=== PATIENT | male | born 2000 | race Caucasian/White ===

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

== ENCOUNTER 2021-07-04 16:39 | Emergency (ER) | payer BC, SELFPAY ==
--- NOTE | ~2021-07-04 | CT_ITS ---
EXAMINATION: CT abdomen pelvis w con DATE: 07/04/2021 18:29 INDICATION: Lower abdominal pain, testicular pain and swelling TECHNIQUE: Computed tomography (CT) of the abdomen and pelvis was performed with 100 cc Omnipaque 350 intravenous contrast. Automated exposure control and iterative reconstruction technique were employe d. Exam dose: 983.20 mGy-cm total exam DLP. COMPARISON: 07/17/2020 CT abdomen pelvis FINDINGS: There are no pericardial or pleural effusion. No infiltrate or consolidation at the lung ba ses. Limited, gallbladder, bile ducts, spleen, pancreas, pancreatic duct, and adrenal glands and kidneys a re unremarkable. Normal caliber of the abdominal aorta. No intraperitoneal or retroperitoneal or pelvic mass lesion or adenopathy or ascites. Normal appendix. There is no evidence of appendicitis. Fluid levels are noted in the small bowel and ascending and transverse colon, without abnormal dilata tion. Consider enterocolitis. No apparent bowel obstruction. There are numerous nonenlarged mesenteri c lymph nodes, likely reactive The urinary bladder, prostate gland and seminal vesicles are unremarkable. Small fat-containing umbilical hernia. Included skeletal structures are unremarkable. IMPRESSION: Nondilated fluid containing small bowel with air-fluid levels and air-fluid levels of th e ascending and transverse colon, suggesting enterocolitis Reviewed, dictated and finalized at [facility]. Reviewed, dictated and finalized at location [facility]. IMPRESSION: Nondilated fluid containing small bowel with air-fluid levels and air-fluid levels of the ascending and transverse colon, suggesting enterocoliti s
[2021-07-04 16:47] VITALS: BP 152/98; PULSE 129; RESP 20; TEMP 36.9; O2SAT 95
--- NOTE | 2021-07-04 17:35 | ED.ABDPAIN ---
HPI - Abdominal Pain General Chief Complaint: Abdominal Pain Stated Complaint: ABD pain Time Seen by Provider: 07/04/21 17:12 Source: patient Mode of arrival: ambulatory Limitations: no limitations History of Present Illness HPI narrative: Patient is a 21-year-old male complaining of lower abdominal pain, 7 out of 10, dull, nonradiating started yesterday. Patient also states that he has noticed some bilateral testicular swelling that also started yesterday. Patient denies any chest pain, shortness of breath, nausea, vomiting, diarrhea, fever, chills or urinary symptoms. Patient denies any GI bleed Related Data Allergies Allergy/AdvReac Type Severity Reaction Status Date / Time No Known Allergies Allergy Verified 07/04/21 17:01 Review of Systems Review of Systems: All systems reviewed & are unremarkable except as noted in HPI and below Constitutional: Constitutional: Denies body ache(s), Denies chills, Denies excessive sweating, Denies fatigue, Denies fever(s), Denies headache(s), Denies lethargy, Denies malaise, Denies weakness and Denies weight loss Eyes: Eyes: Denies blurry vision, Denies change in vision and Denies loss of vision ENT: Denies dizziness, Denies ear discharge, Denies headache(s), Denies lip swelling, Denies epistaxis, Denies nasal congestion, Denies neck pain, Denies throat swelling and Denies tongue swelling Cardiovascular: Cardiovascular: Denies chest pain, Denies chest pain at rest, Denies chest pain with activity, Denies diaphoresis, Denies rapid heart rate, Denies edema, Denies irregular heart rhythm, Denies lightheadedness, Denies palpitations, Denies dyspnea and Denies dyspnea on exertion Respiratory: Respiratory: Denies chest congestion, Denies cough, Denies hemoptysis, Denies dyspnea and Denies dyspnea on exertion Gastrointestinal: Gastrointestinal: Denies abdominal pain, Denies melena, Denies hematochezia, Denies diarrhea, Denies nausea, Denies vomiting and Denies hematemesis Musculoskeletal: Musculoskeletal: Denies abnormal gait, Denies deformity, Denies joint swelling, Denies limited range of motion, Denies neck pain and Denies numbness Neurologic: Denies Abnormal speech present, Denies abnormal gait, Denies confusion, Denies dizziness, Denies headache(s), Denies focal weakness, Denies loss of vision, Denies numbness, Denies Other visual disturbances, Denies Sensory deficit (Neuro) and Denies weakness Psychiatric: Psychiatric: Denies confusion, Denies depression, Denies auditory hallucinations, Denies homicidal ideation and Denies suicidal ideation Endocrine: Endocrine: Denies cold intolerance, Denies excessive sweating, Denies fatigue, Denies heat intolerance and Denies palpitations Hematologic/Lymphatic: Hematologic/Lymphatic: Denies easy bleeding and Denies easy bruising Allergic/Immunologic: Allergic/Immunologic: Denies lip swelling, Denies throat swelling and Denies tongue swelling PMFSH Past Medical History Medical History Cerebral palsy Graves' disease Social History Social History Social History: Patient does not smoke or drink or uses drugs. Second hand tobacco smoke exposure: No Exam Const: General: cooperative, healthy appearing, comfortable, no acute distress, well developed, alert and awake; No confusion Orientation/consciousness: oriented to person, oriented to place, oriented to time, patient oriented x3 and No confusion Limitations: no limitations HENMT: Head: normal to inspection, normocephalic and atraumatic Ears: hearing grossly normal bilaterally, TM normal on the right and TM normal on the left General nose exam: Normal external nose present, Normal nares present and No nasal discharge present Face and sinus: normal facial exam Mouth: Yes Normal oral and palatal mucosa present, Yes lip normal, Yes tongue normal and Yes oropharynx normal Throat: posterior
[2021-07-04] MEDS: SODIUM CHLORIDE 0.9% IV 1,000 ML 999 ML IV CONT (17:40)
[2021-07-04 17:48] LABS: Basophils Absolute Auto 0.1 K/mm3 (0.0-0.1); Basophils Percent Auto 0.4 % (0.2-1.2); Eosinophils Percent Auto 0.1 % (0-4.4); Hematocrit 45.5 % (42.0-52.0); Hemoglobin 15.1 g/dL (14.0-18.0); Immature Granulocyte Absolute 0.04 K/mm3 (0.00-0.031); Immature Granulocyte Percent A 0.3 % (0-0.5); Lymphocytes Absolute Auto 1.82 K/mm3 (0.9-3.2); Lymphocytes Percent Auto 13.4 % (18.3-44.2); Mean Corpuscular HGB Conc 33.2 g/dl (32-36); Mean Corpuscular Hemoglobin 27.6 pg (26-34); Mean Corpuscular Volume 83.2 fl (80-100); Mean Platelet Volume 9.7 fl (7.4-10.4); Monocytes Absolute Auto 1.1 K/mm3 (0.1-0.6); Monocytes Percent Auto 8.2 % (2.6-8.5); Neutrophils Absolute Auto 10.6 K/mm3 (1.3-6.7); Neutrophils Percent Auto 77.6 % (45.5-73.1); Platelet Count Result 341 k/mm3 (150-375); Red Blood Count 5.47 M/mm3 (4.6-6.20); Red Cell Distribution Width 14.1 % (11.5-14.5); White Blood Count 13.6 K/mm3 (4.5-10.0)
[2021-07-04] MEDS: ONDANSETRON INJ 4 MG/2 ML VIAL IV PUSH (17:49)
[2021-07-04] MEDS: MORPHINE SULFATE (*CRX) 2 MG/ML INJ IV PUSH (17:49)
[2021-07-04 18:01] LABS: Alanine Aminotransferase 28 U/L (4-50); Albumin Level 5.1 g/dL (3.5-5.1); Alkaline Phosphatase 112 U/L (38-126); Anion Gap 10 mmol/L (8-16); Aspartate Amino Transferase 25 U/L (17-59); Bilirubin,Total 0.7 mg/dL (0.2-1.3); Blood Urea Nitrogen 10 mg/dL (9-20); Carbon Dioxide 28 mmol/L (22-30); Chloride 100 mmol/L (98-107); Estimated CRCL calculation 179 ml/min; Estimated Glomerular Filt Rate > 60; Glucose 121 mg/dL (65-110); Potassium 3.9 mmol/L (3.4-5.0); Sodium 138 mmol/L (137-145)
[2021-07-04 18:37] VITALS: BP 161/89; PULSE 118; RESP 114; O2SAT 100
[2021-07-04 19:25] VITALS: BP 139/83; PULSE 106; RESP 18; O2SAT 100
[2021-07-04 19:26] LABS: Add Urine Microscopic? YES; Amorphous Sediment Urine Few; Appearance Urine Cloudy (Clear); Bacteria Urine Trace /hpf; Bilirubin Urine Negative (Negative); Blood Urine Negative (Negative); Color Urine Yellow (Yellow); Glucose Urine UA Negative (Negative); Ketones Urine 1+ mg/dL (Negative); Leukocyte Esterase Ur Negative LEU/UL (Negative); Mucus Urine Few /lpf; Nitrate Urine Negative (Negative); Protein Urine Negative (Negative); Urobilinogen Urine Negative mg/dL (<2.0); WBC Urine 0-3 /hpf
[2021-07-04 20:27] VITALS: BP 149/93; PULSE 108; RESP 18; O2SAT 100
[2021-07-04] MEDS: KETOROLAC 30 MG/ML VIAL (*BKC) IV PUSH (20:34)
[2021-07-04 21:40] VITALS: BP 137/86; PULSE 106; RESP 18; O2SAT 100
== END 2021-07-04 22:50 | disposition home or self-care (01) ==
PROVIDERS: Emergency Provider Emergency Medicine; PCP Physician Assistant
DX: K52.9 Noninfective gastroenteritis and colitis, unspecified (principal); G80.9 Cerebral palsy, unspecified; E05.00 Thyrotoxicosis with diffuse goiter without thyrotoxic crisis or storm
CPT/HCPCS: 36415; 74177; 80053; 81001; 83605; 85025; 96361; 96374; 96375; 99284; J1885; J2270; J2405; J7030; Q9967

== ENCOUNTER → 2021-07-05 11:59 | Outpatient (CLI) | payer BC, SELFPAY ==
--- NOTE | ~2021-07-05 | US_ITS ---
EXAMINATION: US scrotum doppler DATE: 07/05/2021 12:23 INDICATION: Testicular pain, unspecified. TECHNIQUE: Grayscale and Doppler ultrasound images of the testes were obtained. COMPARISON: None. FINDINGS: The right testis measures 5.1 x 3.3 x 3.4 cm. The right testis demonstrates diffusely heter ogeneous echogenicity that is predominantly hypoechoic. There is no visible vascular flow in right te stis. The left testis measures 5.0 x 2.3 x 2.6 cm. There is normal vascular flow to the left testis. The right epididymis is enlarged with heterogeneous hypoechogenicity. There is no visible vascularity in the right epididymis. The left epididymis is normal with normal vascular flow. There is a moderat e-sized right hydrocele. IMPRESSION: 1. 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 Neoplasm cannot be excl uded. 2. Enlarged and heterogeneous right epididymis without visible vascular flow, which may be infarct or chronic epididymitis. 3. Moderate-sized right hydrocele. Reviewed, dictated and finalized at location [facility]. IMPRESSION: 1. 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 N eoplasm cannot be excluded. 2. Enlarged and heterogeneous right epididymis without visible vascular flow, w hich may be infarct or chronic epididymitis. 3. Moderate-sized right hydrocele.
== END ==
PROVIDERS: PCP Physician Assistant; Visit Provider Physician Assistant
DX: N50.819 Testicular pain, unspecified (principal); N43.3 Hydrocele, unspecified
CPT/HCPCS: 76870; 93976

== ENCOUNTER 2021-07-06 12:21 | Day surgery (SDC) | payer BC, SELFPAY ==
[2021-07-06] VITALS (7 sets, daily range): BP systolic 143–162; BP diastolic 67–93; PULSE 87–109; RESP 16–24; TEMP 36.8–37.7; O2SAT 96–99; BMI 31.0
--- NOTE | 2021-07-06 12:09 | P.PNAN_ITS ---
Anes - Initial Pre Proc Eval Procedure: Operation Date: 07/06/21 15:00 Proposed Procedures p Scrotal Exploration with Possible Right Orchiectomy, with Bilateral Scrotal Orchiopexy - Travis Wade MD Date/Time: 07/06/21 12:09 Surgeon: Travis Wade MD Pre Op Diagnosis: testicular torsion Patient Data Age: 21 Gender: M Height: Weight: Allergies Allergy/AdvReac Type Severity Reaction Status Date / Time No Known Allergies Allergy Verified 07/06/21 13:21 Home Medications Medication Instructions Recorded Confirmed Type metronidazole 500 mg PO Q8H #21 tablet 07/04/21 07/06/21 Rx sulfamethoxazole-trimethoprim 1 tablet PO Q12H #10 tablet 07/04/21 07/06/21 Rx [Bactrim DS] methimazole 5 mg PO HS 07/06/21 07/06/21 History Patient hx anesthesia problems: none Family hx anesthesia problems: none Results Review: All pre-operative results and documents have been reviewed as part of the pre-operative evaluation. [facility] Past Medical History Medical History Cerebral palsy Graves' disease Social History Social History Social History: Patient does not smoke or drink or uses drugs. Second hand tobacco smoke exposure: No Anes - Eval Final PreProcedure Day of Procedure 07/06/21 12:09 Patient weight: normal Heart: regular rate and rhythm Lungs: clear to auscultation and normal air movement Airway: Mallampati scale class IV Neurological: alert and oriented Last oral intake: >/= 8 hours ASA classification: III Emergent: no Anesthetic plan: proceed Anesthesia type and monitoring: general LMA and standard monitoring Results Review: All pre-operative results and documents have been reviewed as part of the pre-operative evaluation. Informed Consent: The patient's anesthetic plan and its attendant risks and benefits were discussed with the patient/family/POA. Questions were solicited and answers provided to the satisfaction of the patient/family/POA.
--- NOTE | 2021-07-06 13:14 | WPDHPUPDATE1 ---
History and Physical Update Update Date/Time: 07/06/21 13:14 History and Physical has been reviewed, including an updated exam of the patient. There are NO changes in the patient's condition. Risks, benefits, and alternatives have been discussed and questions answered. Patient agrees to proceed with procedure. Proceed with scrotal exploration, possible right orchiectomy with bilateral orchiopexy.
[2021-07-06] MEDS: LACTATED RINGERS 1,000 ML 30 ML IV CONT ×2 (14:00→16:05)
[2021-07-06] MEDS: fentaNYL CITRATE INJ (*CRX) 100 MCG/2 ML VIAL 50 MCG IV PUSH (14:00)
[2021-07-06] MEDS: ceFAZolin 2 GM/D5W 50 ML 2 GM/50 ML BAG IVPB (14:34)
[2021-07-06] MEDS: NEOMYCIN/POLYMYXIN/BACITRACIN OINTMENT 15 GM TUBE 1 APPLIC TOPICAL (15:48)
[2021-07-06] MEDS: BUPIVACAINE HCL 0.25% PF 30 ML VIAL INFILTRATE (15:56)
--- NOTE | 2021-07-06 16:03 | P.OP_ITS ---
Procedure Note - Detailed Date of Procedure 07/06/21 Pre-op Diagnosis testicular torsion Post-op Diagnosis same Procedure Performed Scrotal exploration with right orchiectomy and left orchiopexy Surgeon Travis Wade MD Anesthesia general Findings Necrotic appearing testicle with epididymis with large congested hematoma filling the hydrocele sac as well as in the cord and epididymis. 2. Somewhat malrotated left testicle with the epididymal head actually lying inferiorly Description of Procedure Patient is taken to the operative suite and correctly identified. Once anesthesia was obtained was placed in the supine position and prepped draped usual sterile fashion. A midline scrotal incision was made. It was difficult to get any distinct layers of the tunica due to the extreme amount of edema present. We were able to isolate the right hemiscrotum and bring the testicle and cord up to the operative field. Immediately the entire testicle and cord area was dark in nature. The cord was twisted at least 360?. There was hematoma all along the epididymis and cord. He had a small hydrocele which we opened. This also had hematoma within it. We incised the capsule of the testicle. The tubules appeared dark necrotic in nature. At this point we went ahead and proceeded did a right orchiectomy. The cord was in terms of the vessels and the vas. These were then suture ligated using 2-[address] did [address] a proximal to 0 Prolene on the vascular portion. Specimen was sent for evaluation. We then opened the left hemiscrotum. The testicle was noted to be in a somewhat abnormal position with the epididymal head being inferiorly. We placed it in the appropriate location. We then did an orchiopexy using 2 0 Ethibond by ligating and securing it in 3 points. I should state that he also had a small hydrocele on the left and we excised the excess tissue. Quarter- inch Kierra drains were placed through both hemiscrotum since secured using 3-0 chromic. Tunica of the left hemiscrotal was a closed using 3-0 chromic in a running fashion. Due to the severe edema and fibrous tissue in the right hemiscrotum was somewhat more difficult to close but we accomplished that using 3-0 chromic in a running fashion. Skin was closed using 3-0 chromic in a running fashion. We anesthetized and incision using 1% lidocaine. Patient was taken recovery room stable condition. Kierra drains can be removed in 2-3 days. He can follow up in the office for that removal with our nurse practitioner. Estimated Blood Loss 25 Urine Output 140 Drains Yes Packing No Pathology yes Complications No immediate complications Condition stable Disposition PACU
[2021-07-06] MEDS: fentaNYL CITRATE INJ (*CRX) 100 MCG/2 ML VIAL 25 MCG IV PUSH ×3 (16:49→17:37)
[2021-07-06] MEDS: oxyCODONE HCL (*CRX) 5 MG TAB IR PO (17:18)
--- NOTE | 2021-07-06 17:55 | SUR.PHASEII ---
Vitals are stable. Patient's dad is helping him get dressed now.
== END 2021-07-06 18:05 | disposition home or self-care (01) ==
PROVIDERS: PCP Physician Assistant; Visit Provider Urology
PROC: (CPT 54520; principal; 2021-07-06 13:30)
DX: N44.00 Torsion of testis, unspecified (principal); N43.3 Hydrocele, unspecified; G80.9 Cerebral palsy, unspecified; E05.00 Thyrotoxicosis with diffuse goiter without thyrotoxic crisis or storm
CPT/HCPCS: 54520; 54640; 55040; 88302; 88305; A9270; J0131; J0690; J1100; J2250; J2405; J2704; J3010; J7120

== ENCOUNTER 2021-07-06 12:26 | Outpatient (CLI) | payer BC, SELFPAY ==
[2021-07-06 13:01] LABS: EDCOVIDSCREEN Negative (Negative)
== END 2021-07-06 12:27 | disposition home or self-care (01) ==
PROVIDERS: PCP Physician Assistant; Visit Provider Urology
DX: Z01.812 Encounter for preprocedural laboratory examination (principal); Z20.822 Contact with and (suspected) exposure to COVID-19
CPT/HCPCS: 87426; C9803